=== PATIENT | female | born 1935 | race Caucasian/White ===

== ENCOUNTER 2017-04-01 12:32 | Emergency (ER) | payer OTHER ==
[~2017-04-01] VITALS: Ht 152.4 cm; Wt 64.1 kg
[2017-04-01 12:35] VITALS: TEMP 36.7; Ht 152.4 cm; Wt 64.1 kg
--- NOTE | 2017-04-01 12:47 | EMERGENCY ROOM VISIT NOTE ---
History First contact with patient: 12:38 Chief Complaint: WRIST PAIN Stated Complaint: FELL-RT WRIST PAIN History of Present Illness The patient is a 81 year old female who presents to the Emergency Room via private vehicle accompanied by 2 other females with complaints of "fall, right wrist pain". The patient states that yesterday evening around 7 PM, she was near her home, when she stepped down over a high ledge, lost her balance and fell onto her right wrist. She states that she tried to catch herself and injured the right wrist. She rates the pain at rest is a 2/10 in the right wrist joint, but with movement is a 10/10. She denies any numbness or tingling. She denies striking her head, loss of consciousness or any other areas of pain. She does not take anticoagulants. Review of Systems A complete 6-point Review of Systems was discussed with the patient, with pertinent positives and negatives listed in the History of Present Illness. All remaining Review of Systems questions can be considered negative unless otherwise specified. Past Medical/Surgical History Nose fracture Social History Smoking Status: Never Smoker Alcohol Use: none Drug Use: none Marital Status: Housing Status: lives with family Occupation Status: retired Current/Historical Medications No Active Prescriptions or Reported Meds Physical Exam Vital Signs Date Time Temp Pulse Resp B/P (MAP) Pulse Ox O2 Delivery O2 Flow Rate FiO2 04/01/17 12:35 36.7 101 16 159/78 96 Room Air Physical Exam VITAL SIGNS - Vital signs and nursing notes were reviewed. Afebrile, hypertensive at 159/78, tachycardic at a rate of 101 bpm, and is saturating well on room air 96%. GENERAL -81-year-old female appearing her stated age who is in no acute distress. Communicates well with provider and answers questions appropriately. SKIN - Without rashes. Slight erythema and ecchymosis overlying the right lateral wrist. HEAD - NC/AT. NECK - no C-spine tenderness. EXTREMITIES - No clubbing or peripheral cyanosis. No pretibial edema present. She is neurovascularly intact in the right upper extremity. There is no tenderness to palpation overlying the right wrist. There is limited range of motion secondary to pain in the right wrist. There is edema, erythema and ecchymosis noted around the right wrist. There is slight swelling in the hand. +5/5 strength noted in UE/LE bilaterally. Medical Decision & Procedures ER Provider Diagnostic Interpretation: [~ rep ct add3]] RIGHT WRIST W/NAVICULAR MIN 3 VIEWS CLINICAL HISTORY: Fall, right wrist edema, pain and erythema Right COMPARISON STUDY: None. FINDINGS: Scapholunate dissociation. Severe degenerative changes at the first carpometacarpal joint. Soft tissue swelling throughout the right wrist. Slightly impacted distal radius fracture which extends through the radial styloid and articular surface. The distal ulna and carpal bones are intact. IMPRESSION: 1. Slightly impacted distal radius fracture. 2. Scapholunate dissociation. Electronically signed by: Sacha Schwartz M.D. 04/01/2017 1:53 PM Dictated Date/Time: 04/01/2017 1:51 PM Medical Decision Patient was seen and evaluated as above. She presents to us today status post fall onto her right wrist. There is right wrist pain, erythema and edema. No evidence of infection. She slightly hypertensive upon arrival. Radiograph was obtained, with results as above. There is an impaction fracture of the right radius, and scapholunate dissociation. She was told that with a volar Ortho- Glass, and found to be neurovascularly intact post-splinting. She has been referred to orthopedics, Dr.'s Cruz. She was educated upon worrisome symptoms which to return, had questions or dish her, and was discharged home in good condition. She was also seen and personally followed by my attending physician. I believe she is stable for outpatient management. She is to follow up regarding her high blood pressure. In the evaluation and treatment of this patient, the following differential diagnoses were considered: Wrist Sprain, Wrist Fracture, Wrist Dislocation, Scapholunate Dissociation, Carpal Fracture, Metacarpal Fracture, Radial Styloid Process Fracture, Ulnar Styloid Process Fracture, or Carpal Tunnel Syndrome. Impression Primary Impression: Wrist pain, right Additional Impression: Radius fracture Departure Information Dispostion Home / Self-Care Condition GOOD Prescriptions No Active Prescriptions or Reported Meds Referrals Veronica Rock C.R.N.P (PCP) Du Cruz, DO Patient Instructions My [facility] Additional Instructions You have been treated in the Emergency Department for Wrist Pain. For pain control, you can use the following [id number] medicines: - Regular strength (325mg/tab) Tylenol (acetaminophen) 2 tabs every 4-6 hours as needed. Do not exceed 12 tablets in a 24 hour period. Avoid taking more than 3 grams (3000 mg) of Tylenol per day. This includes any other sources of acetaminophen you may take on a regular basis. If this is a recent injury (<24 hrs), ice can be applied to the area of pain for the first 3 days to help decrease pain and inflammation. You have been provided the number for an Orthopaedic Surgeon. You should call this number as soon as possible to establish a follow-up visit from today's Emergency Department visit. Keep the brace/splint in place until evaluated by Orthopedics. Return to the Emergency Department if your current symptoms worsen despite treatment course outlined above, or if you develop any of the following symptoms : intractable pain despite aforementioned treatment course or new onset of numbness or tingling of the fingers. Please return to the emergency department with any new/concerning symptoms. Problem Qualifiers
--- NOTE | 2017-04-01 13:54 | DIAGNOSTIC IMAGING REPORT ---
RIGHT WRIST W/NAVICULAR MIN 3 VIEWS CLINICAL HISTORY: Fall, right wrist edema, pain and erythema Right COMPARISON STUDY: None. FINDINGS: Scapholunate dissociation. Severe degenerative changes at the first carpometacarpal joint. Soft tissue swelling throughout the right wrist. Slightly impacted distal radius fracture which extends through the radial styloid and articular surface. The distal ulna and carpal bones are intact. IMPRESSION: 1. Slightly impacted distal radius fracture. 2. Scapholunate dissociation. Electronically signed by: Sacha Schwartz M.D. 04/01/2017 1:53 PM Dictated Date/Time: 04/01/2017 1:51 PM
[2017-04-01 14:47] VITALS: BP 161/111; PULSE 102; O2SAT 97
--- NOTE | 2017-04-01 17:40 | EMERGENCY ROOM VISIT NOTE ---
ED Visit Note First contact with patient: 12:38 I have personally evaluated and examined this patient. I agree with assessment and plan of Gio Vora PA-C.
== END 2017-04-01 14:49 | disposition home or self-care (01) ==
LOC: C.EDB 12:33 → C.EDD 14:49
DX: S52.501A Unspecified fracture of the lower end of right radius, initial encounter for closed fracture (principal); W17.89XA Other fall from one level to another, initial encounter; Y92.89 Other specified places as the place of occurrence of the external cause

== ENCOUNTER 2020-03-15 06:29 | Observation (INO) ==
--- NOTE | 2020-02-26 13:42 | PAT Medication Instructions ---
Medication Instructions Date of Service February 26, 2020 Home Medications Medication Instructions Recorded Cosme Edwards #1 ea 08/17/19 calcium carbonate [Calcium 500] 500 mg PO QAM multivitamin 1 tab PO QAM glucos sul [id number]-C-Mn [Glucosamine Chondroitin] 1 cap PO UD STOP taking 2 weeks before surgery glucos sul [id number]-vkv-[id number]-C-Mn [Glucosamine Chondroitin] 1 cap PO UD DO NOT take the morning of surgery calcium carbonate [Calcium 500] 500 mg PO QAM multivitamin 1 tab PO QAM OTHERWISE NOTHING TO EAT OR DRINK AFTER MIDNIGHT Other Notes If you have any questions please call us at [phone] or [phone] or [phone] or [phone]
--- NOTE | 2020-02-28 13:05 | Anesthesiology Consultation ---
Date of Service February 28, 2020 Assessment & Plan (1) Encounter for pre-operative examination: Chart Review Chart Review: Acceptable Risk for Surgery (pending preop Covid testing ) and Patient seen in Pre Admission Testing Per PAT appt 02/28/20, traveled to [facility] to visit family 01/22/20. Wears mask in public. Educated patient to follow up with surgeon's office regarding Covid testing. Educated on importance of self quarantining, social distancing and wearing mask in public both for the patient and household contacts. Teaching & Discussion Pre-Anesthesia Teaching/Discussion Notes: Instructed NPO after midnight before surgery,except medications with 15 cc of water. Medication instructions provided according to the PAT guidelines. History Surgery Operation Date: 03/15/20 11:50 Proposed Procedures p Left Anterior Total Hip Arthroplasty - Tim Yao DO Height/Weight Height: 4 ft 11 in Weight: 59.2 kg Allergies Allergy/AdvReac Type Severity Reaction Status Date / Time Iodinated Contrast Media Allergy Severe TROUBLE Verified 02/22/20 10:21 BREATHING Penicillins Allergy Unknown UNSURE OF Verified 02/22/20 10:21 REACTION Medications Home Medications Medication Instructions Recorded Confirmed Last Taken calcium carbonate [Calcium 500] 500 mg PO QAM 12/07/18 02/22/20 12/13/18 multivitamin 1 tab PO QAM 12/07/18 02/22/20 12/13/18 Wheeled Walker #1 ea 08/17/19 01/10/20 Unknown glucos sul [id number]-[id number]-[id number]-C-Mn 1 cap PO UD 02/22/20 02/22/20 Unknown [Glucosamine Chondroitin] Past Medical History Medical History Endometrioid adenocarcinoma of uterus REASON FOR HYSTERECTOMY- NO CHEMO OR XRT NEEDED Heat stroke ADMITTED 2014 (DEHYDRATION)- NO RESIDUAL ISSUES Hiatal hernia MILD REFLUX IF EATS TOO FAST Osteoarthritis Exercise / Class Metabolic Activity II 4-5 Yardwork/Stairs/Walk up hill (ONE FLIGHT STAIRS- NO CHEST PAIN OR SOB ) Past Family History Family History Grandmother (Paternal) Family history of diabetes mellitus Family/Other Family history of diabetes mellitus Aunt Breast cancer Father Myocardial infarction Denies family history of Ovarian cancer Prostate cancer Colorectal cancer Past Surgical History Surgical History H/O total hysterectomy History of blepharoplasty History of cataract surgery RT History of nasal surgery S/P NASAL FRACTURE History of tonsillectomy [place] teeth removed Past Anesthesia History No Hx of Anesthesia Complications and No Family Hx of Anesthesia Complications History of PONV No Hx of PONV and No Hx of Motion Sickness Social History Smoking Status: Never smoker Do You Dip or Chew Tobacco: No Hx Alcohol Use: No Hx Substance Use: No Review of Systems Occ snoring- no witnessed apnea or sleep study Patient denies chest pain, shortness of breath, dyspnea on exertion, cough, wheezing, palpitations. No hx of seizures, stroke, HI. No hx of blood clots or blood transfusions Physical Exam Vital Signs VITALS BP 148/74 P 93 TEMP 97.8 SP02 96% RESP 16 Constitutional no acute distress ENMT Mouth: no TMJ clicking Thyromental Distance: > or= 3.5 Finger Breadths (3.5) Mallampati Class: II Missing molar Caps on molars and left side tooth Neck neck extension not limited Respiratory normal respiratory effort; no respiratory distress Auscultation: lungs clear to auscultation bilaterally; no wheezes Cardiovascular Rate/Rhythm: regular rate and regular rhythm Heart Sounds: no murmur Vessels: no carotid bruit Musculoskeletal Spine: no pain with cervical ROM Neurologic moves all extremities Psychiatric Orientation: alert Testing Laboratory Results 02/28/20 13:32 02/28/20 13:32 PT 11.3 Seconds (9.0-12.0) 02/28/20 13:32 INR 1.1 (0.9-1.1) 02/28/20 13:32 APTT 29.6 Seconds (21.0-31.0) 02/28/20 13:32 Blood Type O Positive 02/28/20 13:32 Antibody Screen NEGATIVE 02/28/20 13:32 Electrocardiogram Date: 02/28/20 Findings: + NSR @ (87) Chest X-Ray Date: 02/28/20 Findings: + NAD Echocardiogram Date: 02/09/15 EF: 65% LV Function: normal RWMA: + none Valvular Disease: + no significant valvular disease Grade I diastolic dysfunction.
--- NOTE | 2020-02-28 13:52 | XRay Report ---
XR chest Pre-admission PA/Lat CLINICAL HISTORY: pat preoperative COMPARISON STUDY: 02/08/2015 FINDINGS: The bones soft tissues and hemidiaphragms are normal. The cardiomediastinal silhouette is n ormal. The lungs are clear. The pulmonary vasculature is normal. IMPRESSION: Negative chest. ACT 112: Negative or not required by law. The above report was generated using voice recognition software. It may contain grammatical, syntax or spelling errors. Electronically signed by: Ede Alves M.D. 02/28/2020 1:50 PM
[2020-02-28 14:13] LABS: Basophils # (auto) 0.02 K/uL (0-0.2); Basophils % (auto) 0.3 %; Eosinophils # (auto) 0.08 K/uL (0-0.5); Eosinophils % (auto) 1.1 %; Hematocrit (blood only) 40.4 % (37-47); Immature Granulocytes # (auto) 0.01 K/uL (0.00-0.02); Immature Granulocytes % (auto) 0.1 %; Lymphocytes # (auto) 1.58 K/uL (1.2-3.4); Lymphocytes % (auto) 22.5 %; Mean Corpuscular Hemoglobin 28.4 pg (25-34); Mean Corpuscular Hgb Conc 32.2 g/dL (32-36); Mean Corpuscular Volume 88.2 fL (80-100); Mean Platelet Volume 9.2 fL (7.4-10.4); Monocytes # (auto) 0.38 K/uL (0.11-0.59); Monocytes % (auto) 5.4 %; Neutrophils # (auto) 4.95 K/uL (1.4-6.5); Neutrophils % (auto) 70.6 %; Platelet Count 189 K/uL (130-400); RDW Coefficient of Variation 14.7 % (11.5-14.5); RDW Standard Deviation 47.6 fL (36.4-46.3); Red Blood Count 4.58 M/uL (4.2-5.4); White Blood Count 7.02 K/uL (4.8-10.8)
[2020-02-28 14:21] LABS: BUN Creatinine Ratio 13.9 (10-20); Calcium 10.2 mg/dl (8.5-10.1); Creatinine Clr Calc Pharmacy 29.8 ml/min; Est GFR (African American) 51.9; Est GFR (Non-African American) 44.7; Potassium 3.6 mmol/L (3.5-5.1)
[2020-02-28 14:30] LABS: INR 1.1 (0.9-1.1); Partial Thromboplastin Ratio 1.1; Partial Thromboplastin Time 29.6 Seconds (21.0-31.0); Prothrombin Time 11.3 Seconds (9.0-12.0)
--- NOTE | 2020-02-28 14:45 | Electrocardiogram Report ---
Test Reason : Blood Pressure : / mmHG Vent. Rate : 087 BPM Atrial Rate : 087 BPM P-R Int : 134 ms QRS Dur : 094 ms QT Int : 360 ms P-R-T Axes : 059 066 053 degrees QTc Int : 433 ms Normal sinus rhythm Normal ECG When compared with ECG of 10-FEB-2015 06:39, No significant change was found Confirmed by Yoel Hunter ([id number]) on 02/28/2020 2:44:51 PM Referred By: Tim Yao Confirmed By:Yoel Hunter
--- NOTE | 2020-03-14 06:54 | History & Physical Report ---
Date of Service March 14, 2020 Assessment & Plan (1) Osteoarthritis of left hip: We will proceed with a left anterior total of arthroplasty. Postoperatively she will be placed on aspirin for DVT prophylaxis and kept overnight in the hospital for postoperative medical management. She plans to use energy physical therapy upon discharge. Brenna is a low risk for joint replacement surgery without any major comorbidities. Present on Admission?: Yes History of Present Illness Chief Complaint: Primary osteoarthritis of the left hip Primary Care Provider: TERENCE Blue Brenna is a pleasant 84-year-old female who is been dealing with chronic increasing left hip and groin pain. X-rays and clinical examination were diagnostic for advanced osteoarthritis of the left hip. She is failed extensive conservative treatment, including multiple injections. She has elected proceed with a left anterior total hip arthroplasty. Allergies Allergy/AdvReac Type Severity Reaction Status Date / Time Iodinated Contrast Media Allergy Severe TROUBLE Verified 02/22/20 10:21 BREATHING Penicillins Allergy Unknown UNSURE OF Verified 02/22/20 10:21 REACTION Home Medications Home Medications Medication Instructions Recorded Confirmed Type calcium carbonate [Calcium 500] 500 mg PO QAM 12/07/18 02/22/20 History multivitamin 1 tab PO QAM 12/07/18 02/22/20 History Wheeled Walker #1 ea 08/17/19 01/10/20 Rx glucos sul [id number]-[id number]-C-Mn 1 cap PO UD 02/22/20 02/22/20 History [Glucosamine Chondroitin] Past Med/Surg History Medical History Endometrioid adenocarcinoma of uterus REASON FOR HYSTERECTOMY- NO CHEMO OR XRT NEEDED Heat stroke ADMITTED 2014 (DEHYDRATION)- NO RESIDUAL ISSUES Hiatal hernia MILD REFLUX IF EATS TOO FAST Osteoarthritis Surgical History H/O total hysterectomy History of blepharoplasty History of cataract surgery RT History of nasal surgery S/P NASAL FRACTURE History of tonsillectomy [place] teeth removed Family History Grandmother (Paternal) Family history of diabetes mellitus Family/Other Family history of diabetes mellitus Aunt Breast cancer Father Myocardial infarction Denies family history of Ovarian cancer Prostate cancer Colorectal cancer Social History Preferred Language: Samoan Communication Ability: Effective Fitter Armament Required: No Beliefs That Will Affect Care: None marital status: / Current Living Situation: Parent Current Living Situation Comment: LIVES WITH MOTHER (SHE IS 101) BRENNA TAKES CARE OF MOTHER Feels Safe at Home: Yes Safety Concerns: Feels Safe At This Time Smoking Status: Never smoker Do You Dip or Chew Tobacco: No ; Second Hand Exposure: No ; Tobacco Cessation Education Requested by Patient: No Hx Alcohol Use: No Hx Substance Use: No Dental Care, Regularly: Yes Seatbelt Use: always Review of Systems Review of Systems: All systems reviewed & are unremarkable except as noted in HPI & below Physical Exam Constitutional: WD/WN, vitals as above Eyes: PERRL, conjunctivae normal, anicteric sclerae ENMT: external ear and nose normal, oropharynx normal Neck: trachea midline, no thyromegaly Respiratory: normal respiratory effort Cardiovascular: RRR, no murmur, no edema Gastrointestinal (Abdomen): normal bowel sounds, soft, nontender, no hepatosplenomegaly Musculoskeletal: Physical examination of the left hip reveals decreased range of motion with flexion, internal and external rotation. There is significant groin pain with forced internal rotation of the hip his leg lengths are essentially equal. Psychiatric: A+Ox3, euthymic affect Results & Data Results & Data ([facility]) Diagnostic Findings Radiographs of the left hip and pelvis demonstrate advanced osteoarthritis with joint space narrowing osteophyte formation and nons-bp-nmmi articulation. PG Care Time/CCT Total # of Minutes Spent Total Time Spent with Patient: Total time spent is greater than 50% in coordination of care (as documented) at patient's floor/unit and/or counseling patient: Coding Level of Care Code None Diagnoses Osteoarthritis of left hip M16.12
[~2020-03-15 06:29] MED LIST: ACETAMINOPHEN 500 MG TAB PO SCH; CEFAZOLIN 1000MG 1,000 MG/7.5 ML SYR IV SCH; FAMOTIDINE 20 MG TAB PO SCH; GABAPENTIN 300 MG CAP PO SCH; LR 500ML BOLUS, THEN 15ML/HR IV SCH; LR 60ML/HR IV SCH; ROPIVACAINE 0.5% HCL/PF 150 MG, BUPIVACAINE 0.5% MPF 30 ML, EPINEPHrine 30MG/30ML (OR U... INSTIL SCH; SODIUM CHLORIDE 0.9% 1,000 ML IV SCH; TRANEXAMIC ACID / 0.7% NACL 1,000 MG/100 ML BAG IV SCH; TRANEXAMIC ACID 1,000 MG **IV Intra-op IV SCH; TRANEXAMIC ACID 1,000 MG **IV Pre-op IV SCH; dexAMETHasone 4 MG TAB PO SCH
[2020-03-15] MEDS ORDERED: BUPIVACAINE 0.5 % 5 MG/1 ML PF 10ML VIAL ONE (06:31)
[2020-03-15] MEDS ORDERED: fentaNYL citrate 100 MCG/2 ML VIAL ONE (07:01)
[2020-03-15] MEDS ORDERED: LIDOCAINE HCL 2% 2 ML VIAL/AMP(20MG/ML) INFIL ONE (07:01)
[2020-03-15] MEDS ORDERED: MIDAZOLAM HCL 1 MG/ML 2ML VIAL ONE (07:01)
[2020-03-15] MEDS ORDERED: PROPOFOL IV EMULSION 10 MG/ML 20 ML VIAL IV ONE (07:01)
[2020-03-15] MEDS ORDERED: ONDANSETRON INJ 2 MG/ML 2 ML VIAL ONE (07:01)
[2020-03-15] MEDS ORDERED: ORTHO JOINT ANESTHETIC ONE (07:14)
--- NOTE | 2020-03-15 08:17 | History & Physical Bridge Note ---
Date of Service March 15, 2020 History & Physical Bridge Note I have examined the patient, reviewed the History & Physical and in the interval since the performance of the History & Physical I have noted the following changes of clinical significance: no changes noted
[2020-03-15] MEDS ORDERED: fentaNYL citrate 100 MCG/2 ML VIAL IV PRN (08:25)
[2020-03-15] MEDS ORDERED: ePHEDrine sulfate 50 MG/ML AMP IV PRN (08:25)
[2020-03-15] MEDS ORDERED: ATROPINE SULFATE 0.1 MG/ML 10ML SYR IV PRN (08:25)
[2020-03-15] MEDS ORDERED: ONDANSETRON INJ 2 MG/ML 2 ML VIAL IV PRN ×2 (08:25→11:46)
[2020-03-15] MEDS ORDERED: HYDROmorphone INJ 1 MG/ML SYRINGE IV PRN (08:25)
[2020-03-15] MEDS ORDERED: PHENYLEPHRINE 100MCG/ML 5ML SYR ONE (08:55)
--- NOTE | 2020-03-15 09:51 | Operative Report ---
PG Post Operative Report Pre & Post Diagnosis Operation Date: 03/15/20 08:40 Pre-Op Diagnosis: Left Hip Degenerative Joint Disease, M16.12 Post-Op Diagnosis: Left Hip Degenerative Joint Disease, M16.12 I identified the patient and participated in the time-out.: Yes Procedure Operation Date: 03/15/20 08:40 Actual Procedures p Left Anterior Total Hip Arthroplasty(Left) - Tim Yao DO Surgeon Tim Yao DO Mica Splitter Tim Quispe PAC Estimated Blood Loss 200 Findings Consistent with Post-Op Diagnosis Specimens Left femoral head Complications none Disposition Disposition: Recovery Room Indications Brenna is a pleasant 84-year-old female presented my office with complaints of chronic increasing left hip and groin pain. X-rays and clinical examination were diagnostic for advanced osteoarthritis of the left hip. After failing conservative treatment, she had elected to proceed with a left anterior total hip arthroplasty. Description of Procedure Implants used I used a Biomet Taperloc total hip arthroplasty system with a size 9 standard offset micro Taperloc stem, a 52 mm G7 cup with a 25mm screw, an E1 polyethylene liner, a 36 mm ceramic head with a -3 neck. Brenna arrived at the hospital for the above procedure. She was seen in the preoperative holding area and the operative extremity was identified and signed. She was given a spinal anesthetic, a preoperative antibiotic, and TXA. She was then taken back to the operating room and laid on the table in the supine position. She was given basic sedation. The operative leg was secured to a Puristst leg positioner. The hip was then prepped and draped in sterile fashion. A timeout was done and the patient and the operative extremity was properly identified. An anterior approach was used. Dissection was taken down through the fascia and the tensor muscle belly was retracted laterally and the rectus was retracted medially. The circumflex vessels were identified and ligated. The capsule was then incised and tagged for later repair. The femoral neck was then cut and the femoral head was removed. The acetabulum was exposed. Time was spent doing a complete circumferential labral release. Sequential reaming of the acetabulum up to a size 51 reamer was done. Final reamings were done under fluoroscopy to ensure appropriate version. A Biomet 52 mm G7 cup was then impacted into place. A single 25 mm screw was placed. The E1 polyethylene liner was then snapped into place. Surrounding soft tissues were then injected with 100 cc of an orthopedic pain control cocktail. The proximal femur was then exposed. Sequential broaching up to a size 9 broach was done. Off that broach a size 36 head with a -3 neck was trialed. The hip was reduced and fluoroscopic images showed anatomic alignment of the implants in acceptable length. The broach was removed. The final size 9 standard offset micro Taperloc stem was then impacted into place. A ceramic 36 mm head with a - 3 neck was then impacted onto the stem and the hip was reduced. Final fluoroscopic images showed anatomic alignment of the hip. The capsule was then closed with #1 Vicryl suture. A dilute betadyne lavage was then done for 3 minutes. The joint was then irrigated with normal saline solution. The fascia was closed with #1 PDS suture. Skin was closed with 2-0 Vicryl, geraldine, and a Latrice VAC dressing. She was then transferred to a hospital bed and taken to the post anesthesia care unit in stable condition. She tolerated the procedure well. Tim Quispe PA-C, was present for the entire procedure. He was critical for patient positioning, prepping, draping, retraction exposure, wound closure and application of sterile dressing. I attest to the content of the Intraoperative Record and any orders documented therein. Any exceptions are noted below.
--- NOTE | 2020-03-15 10:12 | Fluoroscopy Report ---
FL hip LT 1V CLINICAL HISTORY: LT ANTERIOR TOTAL COMPARISON STUDY: None. FLUOROSCOPY TIME: 36 seconds. FINDINGS: 2 fluoroscopic spot images of the left hip demonstrate a left total hip arthroplasty. The h ardware is intact. No fracture or dislocation. IMPRESSION: Fluoroscopy provided for left total hip arthroplasty. ACT 112: Negative or not required by law. Electronically signed by: Sacha Schwartz M.D. 03/15/2020 10:10 AM
--- NOTE | 2020-03-15 10:41 | XRay Report ---
XR hip 1V LT w pelvis CLINICAL HISTORY: Hip arthroplasty COMPARISON: 05/26/2019 DISCUSSION: There are postsurgical changes of a total left hip arthroplasty. The acetabular and femor al components appear well seated. There are no dislocations. There are overlying skin geraldine. There is gas present within the soft tissues consistent with recent surgery IMPRESSION: Postsurgical changes of a total left hip arthroplasty. ACT 112: Negative or not required by law. Electronically signed by: Juwan Banks M.D. 03/15/2020 10:40 AM
[2020-03-15] MEDS ORDERED: NALOXONE HCL 0.4 MG/1 ML VIAL/CARP IV PRN (11:46)
[2020-03-15] MEDS ORDERED: MAGNESIUM HYDROXIDE SUSP 30 ML UDC PO PRN (11:46)
[2020-03-15] MEDS ORDERED: OXYCODONE HCL IR 5 MG TAB (IMMEDIATE RELEASE) PO PRN (11:46)
[2020-03-15] MEDS ORDERED: bisacodyL 10 MG SUPP PR PRN (11:46)
[2020-03-15] MEDS ORDERED: METOCLOPRAMIDE HCL INJ 5 MG/ML 2 ML VIAL IV PRN (11:46)
[2020-03-15] MEDS ORDERED: HYDROmorphone INJ 0.5 MG/0.5 ML SYR IV PRN (11:46)
[2020-03-15] MEDS ORDERED: PNEUMOCOCCAL ADMINISTRATION CHARGE ONE (12:23)
[2020-03-15] MEDS ORDERED: PNEUMOCOCCAL POLYSACCHARIDES 25 MCG/0.5 ML VIAL/SYR IM ONE (12:23)
[2020-03-15] MEDS: ACETAMINOPHEN 500 MG TAB PO SCH ×2 (13:27→22:19)
[2020-03-15] MEDS: SODIUM CHLORIDE 0.9% 1000ML 1,000 ML IV SCH ×2 (13:27→22:19)
--- NOTE | 2020-03-15 13:47 | Anesthesiology Progress Note ---
Date of Service March 15, 2020 Anesthesia Post Procedure Vital Signs Vital Signs: Temp Pulse Pulse Pulse Resp BP Pulse Ox 03/15/20 13:42 36.4 C L 86 16 150/78 H 98 03/15/20 12:43 97 H 16 151/78 H 94 03/15/20 12:29 36.7 C 74 16 137/75 99 03/15/20 11:40 36.4 C L 80 16 124/72 97 03/15/20 11:25 36.2 C L 84 17 122/60 95 03/15/20 11:20 35.8 C L 03/15/20 11:15 81 16 124/68 97 03/15/20 11:05 35.5 C L 75 13 124/63 94 03/15/20 10:55 75 14 131/65 95 03/15/20 10:45 79 21 125/66 96 03/15/20 10:35 77 16 132/65 98 03/15/20 10:25 75 12 128/63 96 03/15/20 10:15 36.1 C L 83 14 122/61 98 03/15/20 08:00 88 20 169/79 H 99 03/15/20 07:22 37.2 C 95 H 18 176/84 H 96 Transfer of Care Handoff Completed per policy Notes Mental Status: alert / awake / arousable and participated in evaluation Patient Amnestic to Procedure: Yes Nausea / Vomiting: adequately controlled Pain: adequately controlled Airway Patency, RR, SpO2: stable & adequate BP & HR: stable & adequate Hydration State: stable & adequate Neuraxial Anesthesia: was administered and sensory block is resolving Anesthetic Complications: no major complications apparent and Pt Satisfied with anesthetic care
[2020-03-15] MEDS: CEFAZOLIN 2000MG 2,000 MG/15 ML SYR IV SCH ×2 (16:28→23:49)
[2020-03-15] MEDS: DOCUSATE SODIUM 100 MG CAP PO SCH (20:09)
[2020-03-15] MEDS: ASPIRIN 81 MG ECTAB PO SCH (20:10)
[2020-03-15] MEDS ORDERED: SENNA 8.6 MG TAB PO SCH (21:00)
[2020-03-16] MEDS: ACETAMINOPHEN 500 MG TAB PO SCH ×2 (05:09→13:19)
[2020-03-16 06:04] LABS: Hematocrit (blood only) 29.8 % (37-47); Hemoglobin 10.1 g/dL (12.0-16.0); Immature Granulocytes # (auto) 0.04 K/uL (0.00-0.02); Immature Granulocytes % (auto) 0.3 %; Lymphocytes # (auto) 1.04 K/uL (1.2-3.4); Lymphocytes % (auto) 6.8 %; Mean Corpuscular Hemoglobin 28.9 pg (25-34); Mean Corpuscular Hgb Conc 33.9 g/dL (32-36); Mean Corpuscular Volume 85.4 fL (80-100); Mean Platelet Volume 9.4 fL (7.4-10.4); Monocytes % (auto) 7.2 %; Neutrophils # (auto) 13.13 K/uL (1.4-6.5); Neutrophils % (auto) 85.7 %; Platelet Count 176 K/uL (130-400); RDW Coefficient of Variation 14.7 % (11.5-14.5); RDW Standard Deviation 46.1 fL (36.4-46.3); Red Blood Count 3.49 M/uL (4.2-5.4); White Blood Count 15.31 K/uL (4.8-10.8)
[2020-03-16 06:39] LABS: BUN Creatinine Ratio 23.5 (10-20); Calcium 8.6 mg/dl (8.5-10.1); Creatinine Clr Calc Pharmacy 27.9 ml/min; Est GFR (African American) 48.3; Est GFR (Non-African American) 41.6; Potassium 3.9 mmol/L (3.5-5.1)
--- NOTE | 2020-03-16 06:43 | Orthopedic Progress Note ---
Date of Service March 16, 2020 Assessment & Plan (1) History of left hip replacement: Overall she is doing very well. She is not having much pain in the left hip. She will be seen by physical therapy this morning for ambulation and range of motion exercises. She is on aspirin for DVT prophylaxis. If she is feeling okay after physical therapy, and if she feels safe, she can be discharged home later today. Otherwise she can stay until tomorrow. She will follow-up with orthopedics in 2 weeks. Present on Admission?: Yes Subjective Brenna was seen and examined at bedside this morning. Overall she is doing very well. She is not having too much pain in the left hip. She has been up and ambulating to the bathroom. She has no complaints. Physical Exam Musculoskeletal: On physical examination of the left hip, the Silverlon dressing is clean and dry. Her leg lengths are equal. She has active dorsiflexion and plantarflexion of her left ankle. Results & Data ([facility]) Vital Signs (Past 12 Hours) Vital Signs Temp Pulse Pulse Resp BP Pulse Ox 03/16/20 02:38 36.4 C L 79 16 126/68 97 03/15/20 22:53 36.3 C L 82 16 119/68 98 03/15/20 19:20 36.4 C L 104 H 17 103/63 96 Laboratory Results H & H 02/28/20 03/16/20 Range/Units 13:32 05:24 Hgb 13.0 10.1 L (12.0-16.0) g/dL Hct 40.4 29.8 L (37-47) % Coagulation 02/28/20 Range/Units 13:32 INR 1.1 (0.9-1.1) Diagnostic Findings Postoperative x-rays of the left hip show the prosthesis to be in anatomic alignment without any evidence of fracture, dislocation, or loosening. PG Care Time/CCT Total # of Minutes Spent Total Time Spent with Patient: Total time spent is greater than 50% in coordination of care (as documented) at patient's floor/unit and/or counseling patient: Coding Level of Care Code None Diagnoses History of left hip replacement Z96.642
--- NOTE | 2020-03-16 06:44 | Discharge Summary ---
Date of Service March 16, 2020 Admission HPI Per Admitting Provider Brenna is a pleasant 84-year-old female who is been dealing with chronic increasing left hip and groin pain. X-rays and clinical examination were diagnostic for advanced osteoarthritis of the left hip. She is failed extensive conservative treatment, including multiple injections. She has elected proceed with a left anterior total hip arthroplasty. Principal Diagnosis Left hip replacement Discharge Data Allergies Allergy/AdvReac Type Severity Reaction Status Date / Time Iodinated Contrast Media Allergy Severe TROUBLE Verified 03/15/20 07:18 BREATHING Penicillins Allergy Unknown UNSURE OF Verified 03/15/20 07:18 REACTION Consultations 03/16/20 08:00 Consult Case Management - Discharge Planning Routine Procedures Performed Operation Date: 03/15/20 08:40 Actual Procedures p Left Anterior Total Hip Arthroplasty(Left) - Tim Yao DO Ordered Studies 03/15/20 08:40 FL fluoroscopy <1hr Routine FL hip LT 1V Routine Hospital Course (1) History of left hip replacement: On March 15 Brenna arrived at [facility] and underwent a left anterior total hip arthroplasty without complication. She had a spinal anesthetic. Postoperatively she was started on aspirin for DVT prophylaxis and transferred to the general orthopedic floors. Her hospital course was uneventful. On postop day #1 her H&H was stable and her pain was well controlled. She was able to participate well with physical therapy doing ambulation and range of motion exercises. She was then discharged home. She will follow-up with orthopedics in 2 weeks. Total Time Total Time Spent Total Time Spent (In Minutes): 20 Discharge Plan Discharge Items Patient Disposition: Home - Home Health Services Reason For Visit: Left Hip Degenerative Joint Disease, M16.12 Discharge Diagnosis: Left hip replacement Activity: As commented below Non-emergency contact: Surgeon Call non-emergency contact if: your wound has increased redness and your wound has increased drainage Follow-up/Referrals: Veronica Rock CRNP [Primary Care Provider] - Diet: Regular Addtl Attending Provider Instructions: Activity and Therapy Recommendations: * If you are using [facility] then therapy will be provided at your home until they feel you have accomplished all of your goals. * If you are using [facility] then Physical Therapy will be provided until they feel you are ready to start Outpatient Physical Therapy. * If you are not using home therapy then Outpatient Physical Therapy should start about 3-5 days from your day of surgery. Therapy will last about 6-10 weeks * You were shown a series of exercises in the hospital. Do these exercises three times each day including the exercises you were shown in physical therapy. * Get up and walk several times each day.~ For the first four weeks, try not to stand or walk for more than one hour at a time. If you do stand or walk for more than one hour, you will not hurt anything, but your leg will likely swell.~~ * As you feel comfortable, you may change from the walker or crutches to a cane and~then to independent walking. Medications: * Narcotic You will likely be sent home from the hospital with a prescription for the narcotic pain medication that worked best throughout your stay. * Aspirin Most patients will be required to take Aspirin 81mg twice a day for 6 weeks after surgery. This is obtained [id number] and a prescription is not necessary. * Other medications may be prescribed for specific circumstances. If you have any questions, please call the office at . * Resume previous home medications unless otherwise instructed TEDs/Elastic Stockings: The white elastic stockings help limit swelling and prevent blood clots from forming in your legs. The more you wear them, the more they work. Wear them for six weeks. Dressing Care: Leave the Silverlon dressing on for 7 days. After 7 days you may remove the dressing. Then, you may leave the geraldine open to air or cover them with a dry dressing so they do not rub on your pants. The geraldine will be removed at your 2 week follow-up appointment. Showering: You may shower with the Silverlon dressing in place. After 7 days remove the dressing. After the dressing is removed you may shower normally with the geraldine exposed. Let soapy water run over the geraldine and pat them dry. Things To Watch For: * Drainage from the incision site that occurs more than one week after your surgery. * Increased redness at the incision site. * Fever above 102 degrees Fahrenheit. * Unusual chest pain or shortness of breath. * Call [facility] at with any of the above problems Follow-Up Visit: Follow-up with Dr. Yao's PA (Tim Quispe) 2-3 weeks after your day of surgery. He will remove your geraldine and answer any questions. If you have any additional questions or concerns, Dr Yao is usually in the office at the same time and will be available An appointment was probably scheduled when you signed-up for surgery in the office. If you have any questions call Office Instructions: More detailed instructions as well as Frequently Asked Questions were provided in a folder by our office when you signed-up for surgery. Please review these instructions when you get home. If you have any further questions or concerns, please feel free to call the office at [phone] Pending Studies at Discharge: No Stand-Alone Forms: My [facility], Smoking Cessation Medications and DC Order Prescriptions: New tramadol 50 mg tablet 50 mg PO Q6H PRN (Reason: pain) Qty: 30 RF: 0 aspirin 81 mg Tablet,Delayed Release (Dr/Ec) 81 mg PO BID 42 Days Qty: 0 RF: 0 Continued (DME) Wheeled Walker Misc See Rx Instructions .ROUTE .MEDSUPPLY Qty: 1 RF: 0 multivitamin Tablet 1 tab PO QAM RF: 0 calcium carbonate [Calcium 500] 500 mg calcium (1,250 mg) Tablet 500 mg PO QAM RF: 0 Glucosamine Chondroitin 550-30-1 mg Capsule 1 cap PO UD RF: 0 Discharge Orders: Discharge Order (Routine); Ordered 03/16/20 Ordered By: Tim Yao Admission Data Admit Date/Time: 03/15/20 10:20 Attending Provider: Tim Yao Admit Provider: Tim Yao Primary Care Provider: Veronica Rock Coding Level of Care Code D/C Day Management <30 mins Diagnoses History of left hip replacement Z96.642
[2020-03-16] MEDS: ASPIRIN 81 MG ECTAB PO SCH (07:16)
[2020-03-16] MEDS: DOCUSATE SODIUM 100 MG CAP PO SCH (07:16)
[2020-03-16] MEDS ORDERED: dexAMETHasone 4 MG TAB PO SCH (08:00)
[2020-03-16] MEDS ORDERED: MULTIVITAMIN TAB PO SCH (09:00)
== END 2020-03-16 14:01 | disposition home health service (06) ==
LOC: 3E 06:29 → ASU 06:29